=== PATIENT | male | born 1995 | race Caucasian/White ===

== ENCOUNTER 2024-01-20 18:44 | Emergency (ER) | payer OTHER, SELFPAY ==
[2024-01-20 18:56] VITALS: BP 115/60; PULSE 60; RESP 20; TEMP 37.2; O2SAT 99
--- NOTE | 2024-01-20 19:03 | ED.URI ---
HPI - URI/Sore Throat General Chief Complaint: Upper Respiratory Infection Stated Complaint: Sinus Time Seen by Provider: 01/20/24 18:55 Source: patient, RN notes reviewed and old records reviewed Mode of arrival: ambulatory Limitations: no limitations History of Present Illness HPI Narrative: Patient presents with complaints of 2 days of fever, body aches, fatigue, headache, runny nose, sore throat. He has not been taking anything for his symptoms. He reports pain is worse with swallowing, but he is able to do so without difficulty. No wheezing. No distress. Voices no other concerns or complaints at this time Related Data Home Medications Medication Instructions Recorded Confirmed No Home Medications 01/20/24 01/20/24 Allergies Allergy/AdvReac Type Severity Reaction Status Date / Time No Known Allergies Allergy Verified 01/20/24 18:45 Review of Systems Review of Systems: All systems reviewed & are unremarkable except as noted in HPI and below Constitutional: Constitutional: Reports as per HPI, Reports no additional constitutional complaints, Reports body ache(s), Reports chills, Reports fever(s), Reports headache(s) and Reports lethargy ENT: Reports system reviewed and no additional complaints, except as documented, Reports as per HPI, Reports nasal discharge and Reports sore throat Cardiovascular: Cardiovascular: Reports as per HPI and Reports no additional cardiovascular complaints Respiratory: Respiratory: Reports no additional respiratory complaints Gastrointestinal: Gastrointestinal: Reports no additional gastrointestinal complaints Musculoskeletal: Musculoskeletal: Reports myalgias Exam Const: General: cooperative, no acute distress, alert and awake Orientation/consciousness: oriented to person, oriented to place and oriented to time HENMT: Head: normal to inspection Ears: TM's normal bilaterally Face/Nose/Sinus: Nasal discharge present clear Mouth: Yes moist mucous membranes Throat: posterior oropharynx abnormal erythema Resp: Effort & Inspection: normal respiratory effort and able to speak in complete sentences Auscultation: clear to auscultation bilaterally, no crackles, no rales, no rhonchi and no wheezes Cardio: Palpation: normal PMI Rate: regular rate Rhythm: regular rhythm Heart sounds: S1 normal heart sound present and S2 normal heart sound present Neuro: General: oriented to person, oriented to place and oriented to time Cranial nerves: Yes CN's II-XII intact bilaterally Psych: Appearance: grossly normal Thought process: Normal thought process present Insight: Good insight present (Psych) Judgement: Good judgement present (Psych) Course Course Level of Care: Express Care Visit Vital Signs Vital signs: Vital Signs Temperature 99 F 01/20/24 18:56 Pulse Rate 60 01/20/24 18:56 Respiratory Rate 20 01/20/24 18:56 Blood Pressure 115/60 01/20/24 18:56 Pulse Oximetry 99 01/20/24 18:56 Oxygen Delivery Room Air 01/20/24 18:56 Temperature 99 F 01/20/24 18:56 Pulse Rate 60 01/20/24 18:56 Respiratory Rate 20 01/20/24 18:56 Blood Pressure 115/60 01/20/24 18:56 Pulse Oximetry 99 01/20/24 18:56 Oxygen Delivery Room Air 01/20/24 18:56 MDM - URI/Sore Throat MDM Narrative Medical decision making narrative: Negative flu, positive COVID. Patient encouraged to treat symptoms. Rest, fluids, antipyretics, pain relievers. Follow-up with primary care provider. Emergency department for new or worse symptoms. Discharge instructions reviewed with patient, as well as provided in writing per nursing staff. The instructions also include specific and strict return/GO TO THE ER as well as f/u information. All questions have been answered, and the patient deny any further questions with discharge and discharge plan. Some parts of this dictation were generated by voice recognition software and may contain typographical and/or grammatical inaccuracies.
[2024-01-20 19:11] LABS: EDINFLUASCREEN Negative; EDINFLUBSCREEN Negative
== END 2024-01-20 19:15 | disposition home or self-care (01) ==
PROVIDERS: Emergency Provider Nurse Practitioner Family
DX: U07.1 COVID-19 (principal)
CPT/HCPCS: 87426; 87804; 99203; G0463

== ENCOUNTER 2024-04-03 17:50 | Emergency (ER) | payer OTHER, SELFPAY ==
[2024-04-03 17:55] VITALS: BP 111/70; PULSE 75; RESP 16; TEMP 36.3; O2SAT 100
--- NOTE | 2024-04-03 18:18 | ED.GENADULT ---
HPI - General Adult General Chief complaint: Skin/Abscess/Foreign Body Stated complaint: Fingers Keep Opening Up Time Seen by Provider: 04/03/24 18:18 Source: patient, RN notes reviewed and old records reviewed Mode of arrival: ambulatory Limitations: no limitations History of Present Illness HPI narrative: 28-year-old male presents to the [facility] with multiple complaints. First complaint is that his fingers are very dry and keep cracking and bleeding. Does have multiple calluses, fissures noted. No bleeding at this time. No signs of infection. Patient also reports 3 days ago he thinks he has a panic attack but wanted to have a cardiac workup due to family history of cardiac disease. Explained to patient that we do not do blood work nor cardiac workups in the urgent care. Patient also concerned for chronic insomnia. Discussed [id number] treatments, sleep hygiene as well as discussing that this could be due to his anxiety and panic issues discussed following up with [facility] Treatments prior to arrival: none Related Data Home Medications Medication Instructions Recorded Confirmed No Home Medications 01/20/24 01/20/24 Allergies Allergy/AdvReac Type Severity Reaction Status Date / Time No Known Allergies Allergy Verified 01/20/24 18:45 Review of Systems Review of Systems: All systems reviewed & are unremarkable except as noted in HPI and below Constitutional: Constitutional: Reports no additional constitutional complaints ENT: Reports system reviewed and no additional complaints, except as documented Cardiovascular: Cardiovascular: Reports no additional cardiovascular complaints, Denies chest pain and Denies dyspnea Respiratory: Respiratory: Reports no additional respiratory complaints, Denies chest congestion, Denies cough and Denies dyspnea Gastrointestinal: Gastrointestinal: Reports no additional gastrointestinal complaints, Denies abdominal pain, Denies nausea and Denies vomiting Musculoskeletal: Musculoskeletal: Reports no additional musculoskeletal complaints Integumentary/Breasts: Skin/Breast: Reports as per HPI Psychiatric: Psychiatric: Reports as per HPI PMFSH Comments At the time of my signature, I reviewed and agree with the nursing past medical, surgical, social, and family history. There is no relevant family history pertinent to the patient complaint. Exam Const: General: cooperative, healthy appearing, comfortable, no acute distress, well developed, alert and well nourished Nutritional Appearance: well nourished Orientation/consciousness: patient oriented x3 Limitations: no limitations HENMT: Head: normal to inspection Ears: hearing grossly normal bilaterally and external ears normal Face/Nose/Sinus: Normal external nose present, normal facial exam and face symmetric Face and sinus: normal facial exam and face symmetric Eyes: General: appearance normal, both eyes and all related structures Alignment and Position: alignment normal Periorbital: periorbital findings normal Neck: Neck: normal visual inspection, full ROM, no lymphadenopathy and no meningeal signs Chest: Chest palpation & inspection: normal inspection of the chest Resp: Effort & Inspection: normal respiratory effort and able to speak in complete sentences Auscultation: clear to auscultation bilaterally, no crackles, no rales, no rhonchi and no wheezes Cardio: Rate: regular rate Skin: General skin exam: normal color and no rashes or lesions noted Rashes: no rashes Other: Multiple fissures noted to distal aspect of fingers, callused skin no signs of. Neuro: General: patient oriented x3, gait normal, tone normal, moves all extremities and no meningeal signs Cognition (Neuro): normal cognition Speech: normal speech Gait exam (Neuro): Normal gait present Extrem: General: normal to inspection, full ROM, capillary refill normal and normal gait Psych: Appearance: grossly normal and well kempt Mental Status: mental status grossly normal Speech and movement: Normal speech and movement present and Clear speech present Affect: Anxious affect present Attitude: cooperative Course Course Level of Care: Express Care Visit Vital Signs Vital signs: Vital Signs Temperature 97.3 F L 04/03/24 17:55 Pulse Rate 75 04/03/24 17:55 Respiratory Rate 16 04/03/24 17:55 Blood Pressure 111/70 04/03/24 17:55 Pulse Oximetry 100 04/03/24 17:55 Oxygen Delivery Room Air 04/03/24 17:55 Temperature 97.3 F L 04/03/24 17:55 Pulse Rate 75 04/03/24 17:55 Respiratory Rate 16 04/03/24 17:55 Blood Pressure 111/70 04/03/24 17:55 Pulse Oximetry 100 04/03/24 17:55 Oxygen Delivery Room Air 04/03/24 17:55 Reviewed Medical Decision Making MDM Narrative Medical decision making narrative: Patient sitting comfortably in exam room. Nontoxic, vitals stable. Patient in no acute distress Patient presents for for multiple complaints. Dry skin, panic issues without SI or HI Patient appropriate to follow-up. Discharge instructions reviewed with patient, as well as provided in writing per nursing staff. The instructions also include specific and strict return/GO TO THE ER as well as f/u information. All questions have been answered, and the patient deny any further questions with discharge and discharge plan. Some parts of this dictation were generated by voice recognition software and may contain typographical and/or grammatical inaccuracies. Medical Records Medical records reviewed: Yes I reviewed the external patient's medical records. Vital Signs Vital Signs: Vital Signs Temperature 97.3 F L 04/03/24 17:55 Pulse Rate 75 04/03/24 17:55 Respiratory Rate 16 04/03/24 17:55 Blood Pressure 111/70 04/03/24 17:55 Pulse Oximetry 100 04/03/24 17:55 Oxygen Delivery Room Air 04/03/24 17:55 Temperature 97.3 F L 04/03/24 17:55 Pulse Rate 75 04/03/24 17:55 Respiratory Rate 16 04/03/24 17:55 Blood Pressure 111/70 04/03/24 17:55 Pulse Oximetry 100 04/03/24 17:55 Oxygen Delivery Room Air 04/03/24 17:55 Reviewed Lab Data Lab results reviewed: Yes I reviewed the patient's lab results. Labs: Reviewed Critical Care Time Critical Care Time Critical Care Time: No Discharge Plan Discharge Clinical Impression: Dry skin Patient Disposition: Home, Self-Care Condition: Stable Instructions: Antibiotic Form, Anxiety (ED) Additional Instructions: For the dry cracking skin you can use a good moisturizing lotion such as Eucerin, Aquaphor or Aveeno At night you can apply Vaseline and cover with a glove, leave on at night. Avoid using hot water. Wash with a moisturizing soap. Avoid antibacterial. 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 For your anxiety, it is recommended you follow-up with [facility]. They have services for primary care providers as well as provider 2nd help with anxiety, depression, insomnia [email or web address] [facility] [address] [place] [address] [place] [address] If you ever feel like you are having chest pain, shortness of breath or concerns for cardiac issues please go directly to the nearest emergency room Patient Language: Romanian Prescriptions: No Action No Home Medications Follow-up/Referrals: PHYSICIAN,OUTSOLE CASER [Primary Care Provider] - Stand Alone Forms: Work/School Release IP Time of Disposition: 18:32
== END 2024-04-03 18:40 | disposition home or self-care (01) ==
PROVIDERS: Emergency Provider Nurse Practitioner
DX: L85.3 Xerosis cutis (principal); J45.909 Unspecified asthma, uncomplicated
CPT/HCPCS: 99211; G0463

== ENCOUNTER 2024-04-09 19:45 | Emergency (ER) | payer OTHER, SELFPAY ==
--- NOTE | 2024-04-09 19:48 | ED.EXTPRO ---
HPI - Extremity Problem General Chief complaint: Skin/Abscess/Foreign Body Stated complaint: left forearm issue Time Seen by Provider: 04/09/24 19:46 Source: patient Mode of arrival: ambulatory Limitations: no limitations History of Present Illness HPI Narrative: Artie is a 28-year-old male patient presenting to the clinic today with complaints of a left forearm skin infection. Reports 3 days ago he noted is what looked like a pimple to the left forearm and is gradually got bigger. He reports he has been hitting the area lot at work and is causing increased pain. Has redness and swelling localized around the pustule area. Denies any fever, chills, or body aches. Related Data Allergies Allergy/AdvReac Type Severity Reaction Status Date / Time No Known Allergies Allergy Verified 04/09/24 19:46 Review of Systems Review of Systems: Pertinent positives per HPI. Patient denies any fever, chills, rash, headache, visual changes, dizziness, cough, runny nose, sore throat, shortness of breath, chest pain, palpitations, nausea, vomiting, diarrhea, constipation, abdominal pain, or any urinary issues. PMFSH Comments At the time of my signature, I reviewed and agree with the nursing past medical, surgical, social, and family history. There is no relevant family history pertinent to the patient complaint. Exam Narrative: General: Well-developed, well nourished, in no apparent distress Head: Normocephalic, atraumatic. Cardio: Regular rate and rhythm, s1 and s2 normal, no murmur appreciated. Resp: Clear to auscultation bilaterally, no rhonchi, rales, wheezing or rubs. Integumentary: [place], warm, and dry, center pustule area indurated 2 x 2 cm with erythema and fluctuance, tenderness to palpation. Course Course Emergency Course: Portions of this record may have been created with voice recognition software. Level of Care: Express Care Visit Vital Signs Vital signs: Vital Signs Temperature 36.4 C L 04/09/24 19:52 Pulse Rate 90 04/09/24 19:52 Respiratory Rate 16 04/09/24 19:52 Blood Pressure 116/65 04/09/24 19:52 Pulse Oximetry 98 04/09/24 19:52 Oxygen Delivery Room Air 04/09/24 19:52 Temperature 36.4 C L 11/20/24 19:52 Pulse Rate 90 04/09/24 19:52 Respiratory Rate 16 04/09/24 19:52 Blood Pressure 116/65 04/09/24 19:52 Pulse Oximetry 98 04/09/24 19:52 Oxygen Delivery Room Air 04/09/24 19:52 Vital signs reviewed Procedures Abscess I/D upper extremity: Date of Incision: 04/09/24 Side (if applicable): left Technique: other (18 gauge needle was used to incise left forearm abscess) Amount of fluid expressed (mL): 2 Irrigation: No Packing used?: none I&D Results: Pus and Blood Complications: other (None) Abcess I&D Additional Comments: Verbal consent obtained for incision and drainage. Risk and benefits explained and patient voiced understanding. Area was cleansed with antiseptic wound wash. An 18 gauge needle was then used to incise the left forearm skin abscess, Patient tolerated fair Wound culture obtained and sent to lab. MDM - Extremity (Nontraumatic) MDM Narrative Medical decision making narrative: At the time of visit patient is resting comfortably on the exam table. Patient appears to be nontoxic. Labs: Wound culture was obtained and sent to the lab Plan: I suspect patient has a skin abscess to left forearm. Incision and drainage was performed using an 18 gauge needle. Patient tolerated fair. Brown white pus was expressed and wound culture was obtained and sent to the lab. Supportive measures were discussed with the patient and they voiced understanding discharge instructions and agrees to treatment plan. Return precautions reviewed Differential Diagnosis Differential diagnosis: Likely cellulitis and other (Abscess, skin infection) Discharge Plan Discharge Clinical Impression: Abscess of skin or subcutaneous tissue Qualifiers: Site of cutaneous abscess: extremity Site of cutaneous abscess of extremity: upper extremity Laterality: left Qualified Code(s): L02.414 - Cutaneous abscess of left upper limb Patient Disposition: Home, Self-Care Condition: Stable Instructions: Antibiotic Form, Abscess (ED), Abscess Incision and Drainage (DC) Additional Instructions: Keep clean and dry Wash area daily with soap and water Apply mupirocin cream to the affected area twice daily x7 days Take Bactrim and cephalexin as prescribed Wound culture was obtained and sent to the lab Take Tylenol/Motrin as needed for pain Apply warm compresses to the affected area for 15 minutes at a time 6 times per day to help facilitate drainage Follow-up with your primary care doctor in 3 days for a wound check Prescriptions: New sulfamethoxazole-trimethoprim [Bactrim DS] 800-160 mg tablet 1 tablet PO Q12H 7 Days Qty: 14 0RF cephalexin 500 mg capsule 500 mg PO Q8H 7 Days Qty: 21 0RF mupirocin 2 % ointment 1 applic topical BID 7 Days Qty: 22 0RF Follow-up/Referrals: PHYSICIAN,DOCUMENT IMAGE TECHNICIAN [Primary Care Provider] - Time of Disposition: 19:58 Quality NIHSS Nursing Documentation ED NIHSS nursing documentation: reviewed/agree
[2024-04-09 19:52] VITALS: BP 116/65; PULSE 90; RESP 16; TEMP 36.4; O2SAT 98
== END 2024-04-09 20:05 | disposition home or self-care (01) ==
PROVIDERS: Emergency Provider Nurse Practitioner Family
DX: L02.414 Cutaneous abscess of left upper limb (principal); B95.61 Methicillin susceptible Staphylococcus aureus infection as the cause of diseases classified elsewhere; J45.909 Unspecified asthma, uncomplicated
CPT/HCPCS: 10060; 87070; 87075; 87181; 87205; 99213; G0463

== ENCOUNTER 2024-04-13 13:20 | Emergency (ER) | payer OTHER, SELFPAY ==
[2024-04-13 13:27] VITALS: BP 136/85; PULSE 88; RESP 20; TEMP 36.4; O2SAT 100
--- NOTE | 2024-04-13 13:32 | ED.GENADULT ---
HPI - General Adult General Chief complaint: Unspecified Stated complaint: spider bite thinks it was brown recluse Time Seen by Provider: 04/13/24 13:32 Source: patient Mode of arrival: ambulatory Limitations: no limitations History of Present Illness HPI narrative: 28-year-old otherwise healthy here with a complaint of draining abscess on his left forearm patient states that he has been on Keflex and Bactrim for past few days while he was at [employer] it started draining. Patient states that he squeezed the pus out. Denies any fever or chills. Onset (ago): day(s) Location: upper extremity Severity: mild Relieving factors: none Exacerbating factors: none Associated symptoms: denies other symptoms Related Data Allergies Allergy/AdvReac Type Severity Reaction Status Date / Time No Known Allergies Allergy Verified 04/13/24 13:21 Review of Systems Review of Systems: All systems reviewed & are unremarkable except as noted in HPI and below Constitutional: Constitutional: Reports no additional constitutional complaints Eyes: Eyes: Reports no additional eye complaints ENT: Reports system reviewed and no additional complaints, except as documented Cardiovascular: Cardiovascular: Reports no additional cardiovascular complaints Respiratory: Respiratory: Reports no additional respiratory complaints Musculoskeletal: Musculoskeletal: Reports as per HPI Neurologic: Reports system reviewed and no additional complaints, except as documented Exam Narrative: GENERAL: Well-appearing, well-nourished, and in no acute distress. HEAD: Normocephalic, atraumatic. EYES: PERRLA and EOMI. NECK: Supple. CHEST: Clear to auscultation. No respiratory distress. HEART: Regular rate and rhythm. No murmur heard. Normal peripheral pulses. EXTREMITIES: Normal range of motion. No edema.has a draining abscess on the right fore arm SKIN: Warm, dry, no rash. NEURO: No focal deficits. Alert and oriented x3. PSYCH: Normal mood and affect. Course Course Emergency Course: Informed him to continue his home antibiotics. No indication to change the antibiotic as it is now draining . Vital Signs Vital signs: Vital Signs Temperature 36.4 C 04/13/24 13:27 Pulse Rate 88 04/13/24 13:27 Respiratory Rate 20 04/13/24 13:27 Blood Pressure 136/85 04/13/24 13:27 Pulse Oximetry 100 04/13/24 13:27 Oxygen Delivery Room Air 04/13/24 13:27 Temperature 36.4 C 04/13/24 13:27 Pulse Rate 88 04/13/24 13:27 Respiratory Rate 20 04/13/24 13:27 Blood Pressure 136/85 04/13/24 13:27 Pulse Oximetry 100 04/13/24 13:27 Oxygen Delivery Room Air 04/13/24 13:27 Medical Decision Making Vital Signs Vital Signs: Vital Signs Temperature 36.4 C 04/13/24 13:27 Pulse Rate 88 04/13/24 13:27 Respiratory Rate 20 04/13/24 13:27 Blood Pressure 136/85 04/13/24 13:27 Pulse Oximetry 100 04/13/24 13:27 Oxygen Delivery Room Air 04/13/24 13:27 Temperature 36.4 C 04/13/24 13:27 Pulse Rate 88 04/13/24 13:27 Respiratory Rate 20 04/13/24 13:27 Blood Pressure 136/85 04/13/24 13:27 Pulse Oximetry 100 04/13/24 13:27 Oxygen Delivery Room Air 04/13/24 13:27 Discharge Plan Discharge Clinical Impression: Abscess of forearm, left Patient Disposition: Home, Self-Care Condition: Stable Instructions: Antibiotic Form Additional Instructions: continue home antibiotics follow with your doctor as needed. Prescriptions: No Action sulfamethoxazole-trimethoprim [Bactrim DS] 800-160 mg tablet 1 tablet PO Q12H 7 Days Qty: 14 0RF cephalexin 500 mg capsule 500 mg PO Q8H 7 Days Qty: 21 0RF mupirocin 2 % ointment 1 applic topical BID 7 Days Qty: 22 0RF Follow-up/Referrals: PHYSICIAN,RETURNS SUPERVISOR [Primary Care Provider] - Teddy Cabrera MD [Physician] - Time of Disposition: 14:25
== END 2024-04-13 14:39 | disposition home or self-care (01) ==
PROVIDERS: Emergency Provider Family Medicine
DX: L02.414 Cutaneous abscess of left upper limb (principal)
CPT/HCPCS: 99281

== ENCOUNTER 2024-04-19 08:40 | Emergency (ER) | payer OTHER, SELFPAY ==
--- NOTE | ~2024-04-19 | XR_ITS ---
XR shoulder RT min 2V DATE: 04/19/2024 10:56 INDICATION: Right shoulder pain. No injury. TECHNIQUE: 4 views COMPARISON: None FINDINGS: No fracture or dislocation, periosteal reaction or bone destruction is detected. No abnorma l right shoulder soft tissue calcification. Mild dextro scoliosis of the upper thoracic spine. IMPRESSION: Negative right shoulder Reviewed, dictated and finalized at location [facility]. EDICAL SPECIALIST IMPRESSION: Negative right shoulder
--- NOTE | ~2024-04-19 | XR_ITS ---
XR_[id number]_CR DATE: 04/19/2024 10:56 INDICATION: Right neck pain. No injury. TECHNIQUE: AP, open-mouth, odontoid, lateral views COMPARISON: None FINDINGS: Minimal levoscoliosis. C1 and C2 are normally aligned and the odontoid process appears inta ct. No fracture or dislocation or locked facet or prevertebral soft tissue swelling. Cervical interspaces appear relatively preserved. IMPRESSION: Minimal levoscoliosis of the cervical spine; otherwise no significant abnormality Reviewed, dictated and finalized at [facility]. Reviewed, dictated and finalized at location [facility]. [employer] IMPRESSION: Minimal levoscoliosis of the cervical spine; otherwise no significa nt abnormality
--- NOTE | 2024-04-19 11:03 | ED.UPPEXIN ---
HPI - Extremity Injury (Upper) General Chief Complaint: Extremity Injury, Upper Stated Complaint: right arm issues Time Seen by Provider: 04/19/24 09:57 Source: patient Mode of arrival: ambulatory Limitations: no limitations History of Present Illness HPI narrative: This is a 28-year-old male, with recent history of abscess drainage of left forearm, presents to the emergency department complaining of right shoulder pain and intermittent paresthesias for the past 2 days. The patient states 2 days ago, he woke from sleep with significant right neck soreness and right shoulder pain described as dull and rated 6/10 without radiation. He denies any other trauma, fevers, chills, chest pain or shortness of breath. He has no other complaints at this time. Related Data Allergies Allergy/AdvReac Type Severity Reaction Status Date / Time No Known Allergies Allergy Verified 04/19/24 08:43 Review of Systems Review of Systems: All systems reviewed & are unremarkable except as noted in HPI and below PMFSH Past Medical History Medical History No significant past medical history Surgical History Surgical History No significant past surgical history Social History Social History Smoking status: Never smoker Alcohol intake: never Substance use: never Exam Narrative: GENERAL: Well-developed, well-nourished, and in no acute distress. HEAD: Normocephalic, atraumatic. EYES: PERRLA and EOMI. CHEST: Clear to auscultation. No respiratory distress. No wheezes rales or rhonchi HEART: Regular rate and rhythm. No murmur heard. Normal peripheral pulses. EXTREMITIES: Tender to palpation at the distal aspect of the right clavicle in the anterior aspect of the right shoulder without deformity, erythema or induration. Passive range of motion of the right shoulder on abduction limited to 90?. Active range of motion of the right shoulder limited by pain. Normal range of motion of all other extremities. No edema. SKIN: Warm, dry, no rash. NEURO: Alert and oriented x3. No focal deficit. Moving all 4 limbs spontaneously PSYCH: Normal mood and affect. Course Course Emergency Course: 11:30 - X-ray of the shoulder not concerning for fracture, dislocation or separation. X-ray of the cervical spine demonstrates minimal levoscoliosis but is otherwise unremarkable. I suspect muscle spasm as the cause of the patient's paresthesias and rotator cuff injury is the cause of the patient's pain. Will discharge with recommendation for NSAIDs, lidocaine patches, muscle relaxers and primary care follow-up. The patient requests a work note, including one to excuse an absence 2 days ago. I discussed the findings and recommendations with the patient. Discussed return and emergency precautions including signs/symptoms of septic arthritis and neurovascular compromise. The patient voiced understanding and agreement with the plan. All questions answered to his satisfaction. MDM - Extremity Injury (Upper) MDM Narrative Medical decision making narrative: Plan: Imaging, pain control, reassess Differential Diagnosis Differential diagnosis: Likely other (Dislocation shoulder, and separation shoulder, rotator cuff injury, cervical radiculopathy, cervical paraspinal muscle spasm, other) Discharge Plan Discharge Clinical Impression: Acute pain of right shoulder, Neck pain on right side Injury of right rotator cuff Qualifiers: Encounter type: initial encounter Qualified Code(s): S46.001A - Unspecified injury of muscle(s) and tendon(s) of the rotator cuff of right shoulder, initial encounter Patient Disposition: Home, Self-Care Condition: Stable Instructions: Antibiotic Form, Rotator Cuff Injury (ED) Additional Instructions: You were seen in the emergency department. Your x-rays were not concerning for fracture dislocation. I suspect a rotator cuff strain. I recommend rest, icing, gentle exercises, Tylenol/ibuprofen as needed for pain and follow-up with a primary care doctor.. If you develop fevers with severe arm pain and rapid swelling, the fingers/arm appears blue/cold, or if you have other emergent concerns for life, limb, or eyesight, return to the emergency department. Patient Language: Malagasy Prescriptions: New naproxen 500 mg tablet 500 mg PO BID PRN (Reason: pain) Qty: 10 0RF lidocaine 5 % adhesive patch,medicated 1 patch topical DAILY Qty: 30 0RF Rx Instructions: leave on most painful area for up to 12 hrs No Action sulfamethoxazole-trimethoprim [Bactrim DS] 800-160 mg tablet 1 tablet PO Q12H 7 Days Qty: 14 0RF cephalexin 500 mg capsule 500 mg PO Q8H 7 Days Qty: 21 0RF mupirocin 2 % ointment 1 applic topical BID 7 Days Qty: 22 0RF Follow-up/Referrals: Adamaris Bland DO [Physician] - 2 Weeks Stand Alone Forms: Work/School Release IP Time of Disposition: 11:31
[2024-04-19] MEDS: LIDOCAINE 5% PATCH 1 PATCH TRANSDERM (11:13)
== END 2024-04-19 12:13 | disposition home or self-care (01) ==
PROVIDERS: Emergency Provider Preventive Medicine Aerospace Medicine
DX: S46.011A Strain of muscle(s) and tendon(s) of the rotator cuff of right shoulder, initial encounter (principal); M54.2 Cervicalgia; X58.XXXA Exposure to other specified factors, initial encounter
CPT/HCPCS: 72040; 73030; 99284; A9270

== ENCOUNTER 2024-05-10 20:08 | Emergency (ER) | payer OTHER, SELFPAY ==
--- NOTE | ~2024-05-10 | XR_ITS ---
XR shoulder RT min 2V DATE: 05/10/2024 20:44 INDICATION: Shoulder pain, unable to lift. No injury. TECHNIQUE: 3 views COMPARISON: 04/19/2024 right shoulder FINDINGS: No fracture or dislocation, periosteal reaction or bone destruction or abnormal soft tissue calcification. IMPRESSION: Negative Reviewed, dictated and finalized at location A. 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
[2024-05-10 20:10] VITALS: BP 121/45; PULSE 96; RESP 14; TEMP 36.4; O2SAT 100
--- NOTE | 2024-05-10 20:29 | ED.GENADULT ---
HPI - General Adult General Chief complaint: Unspecified Stated complaint: bumps on my face , can't lift right arm up Time Seen by Provider: 05/10/24 20:19 History of Present Illness HPI narrative: 28-year-old male presenting to the emergency department for evaluation for right shoulder pain and a new facial abscess. Patient does have prior history of MRSA and just recently completed a dose of antibiotics. Patient had a pimple on his face that was draining today. Patient also complains decreased range of motion of the right shoulder that has been ongoing for the last few weeks. Related Data Allergies Allergy/AdvReac Type Severity Reaction Status Date / Time No Known Allergies Allergy Verified 05/10/24 20:09 Review of Systems Review of Systems: All systems reviewed & are unremarkable except as noted in HPI and below PMFSH Past Medical History Medical History No significant past medical history Surgical History Surgical History No significant past surgical history Social History Social History Smoking status: Never smoker Alcohol intake: never Substance use: never Exam Narrative: APPEARANCE: Well appearing, no pain, no distress, well-nourished. HEAD: normocephalic, atraumatic. EYES: PERRLA/EOMI, conjunctivae clear. NOSE: Normal no drainage EARS:TMS clear with good light reflex. THROAT: Pharynx clear, no exudate. NECK: Supple. No adenopathy, no masses. RESPIRATORY: Airway patent, respirations nonlabored. Clear to auscultation bilaterally, no rales, rhonchi, wheezing. CARDIOVASCULAR: Regular rate and rhythm without murmurs rubs or gallops. ABDOMINAL: Soft, nontender, nondistended, normal bowel sounds MUSCULOSKELETAL: Decreased range of motion of the right shoulder with rotator cuff tenderness NEURO: Alert. Cranial nerves II through XII intact. Grossly intact SKIN: Right-sided facial abscess that is spontaneously draining Course Vital Signs Vital signs: Vital Signs Temperature 97.6 F 05/10/24 20:10 Pulse Rate 96 05/10/24 20:10 Respiratory Rate 14 05/10/24 20:10 Blood Pressure 121/45 L 05/10/24 20:10 Pulse Oximetry 100 12/21/24 20:10 Oxygen Delivery Room Air 05/10/24 20:10 Temperature 97.6 F 05/10/24 20:10 Pulse Rate 89 05/10/24 21:18 Respiratory Rate 16 05/10/24 21:18 Blood Pressure 124/86 05/10/24 21:18 Pulse Oximetry 100 05/10/24 21:18 Oxygen Delivery Room Air 05/10/24 20:10 Medical Decision Making MDM Narrative Medical decision making narrative: 28-year-old male with history of MRSA present to the emergency department for evaluation for a facial abscess. Patient's facial abscess is spontaneously draining. Patient was started on Bactrim to cover for MRSA. Patient does have normal passive range of motion of the right shoulder but decreased active range of motion of the right shoulder. Patient does have tenderness at the rotator cuff. X-ray showed no acute fractures or dislocations. Patient was provided a sling for the shoulder injury and was encouraged to follow-up with orthopedics. Patient was started on Bactrim for the facial abscess. All questions concerns were addressed. Patient was well-appearing at time of discharge. Differential Diagnosis Differential Diagnosis: Abscess, cellulitis, shoulder fracture, shoulder dislocation, rotator cuff injury Vital Signs Vital Signs: Vital Signs Temperature 97.6 F 05/10/24 20:10 Pulse Rate 96 05/10/24 20:10 Respiratory Rate 14 05/10/24 20:10 Blood Pressure 121/45 L 05/10/24 20:10 Pulse Oximetry 100 05/10/24 20:10 Oxygen Delivery Room Air 05/10/24 20:10 Temperature 97.6 F 05/10/24 20:10 Pulse Rate 89 05/10/24 21:18 Respiratory Rate 16 05/10/24 21:18 Blood Pressure 124/86 05/10/24 21:18 Pulse Oximetry 100 05/10/24 21:18 Oxygen Delivery Room Air 05/10/24 20:10 Discharge Plan Discharge Clinical Impression: MRSA infection, Rotator cuff injury Patient Disposition: Home, Self-Care Condition: Stable Instructions: Antibiotic Form, MRSA (Methicillin-Resistant Staphylococcus Aureus) (ED), Rotator Cuff Injury (ED) Additional Instructions: Antibiotic as directed until completed for the facial abscess. Sling for comfort. Have close follow-up with your primary care physician and you should also have close follow-up with Orthopedics. If you have any worsening symptoms then please call or return to the emergency department. Patient Language: Andorran Prescriptions: New sulfamethoxazole-trimethoprim [Bactrim DS] 800-160 mg tablet 1 tablet PO Q12H 7 Days Qty: 14 0RF No Action sulfamethoxazole-trimethoprim [Bactrim DS] 800-160 mg tablet 1 tablet PO Q12H 7 Days Qty: 14 0RF cephalexin 500 mg capsule 500 mg PO Q8H 7 Days Qty: 21 0RF mupirocin 2 % ointment 1 applic topical BID 7 Days Qty: 22 0RF naproxen 500 mg tablet 500 mg PO BID PRN (Reason: pain) Qty: 10 0RF lidocaine 5 % adhesive patch,medicated 1 patch topical DAILY Qty: 30 0RF Rx Instructions: leave on most painful area for up to 12 hrs Follow-up/Referrals: PHYSICIAN,INSTITUTE DIRECTOR [Primary Care Provider] - Akil Camarillo MD [Physician] -
[2024-05-10] MEDS: SULFAMETHOXAZOLE/TRIMETHOPRIM 800/160 MG DS TABLET 1 TAB PO (21:07)
[2024-05-10 21:18] VITALS: BP 124/86; PULSE 89; RESP 16; O2SAT 100
== END 2024-05-10 21:21 | disposition home or self-care (01) ==
LOC: ANHED 21:10
PROVIDERS: Emergency Provider Emergency Medicine
DX: L02.01 Cutaneous abscess of face (principal); B95.62 Methicillin resistant Staphylococcus aureus infection as the cause of diseases classified elsewhere; S46.001A Unspecified injury of muscle(s) and tendon(s) of the rotator cuff of right shoulder, initial encounter; X58.XXXA Exposure to other specified factors, initial encounter
CPT/HCPCS: 73030; 99283; A4565; A9270